=== PATIENT | female | born 1975 | race Asian ===

== ENCOUNTER → 2019-09-15 14:13 | Outpatient (BNVA) | payer BC, SELFPAY | PROVIDERS: Family Provider Obstetrics & Gynecology; PCP Obstetrics & Gynecology; Visit Provider Obstetrics & Gynecology | DX: Z01.419 Encounter for gynecological examination (general) (routine) without abnormal findings (principal); N87.1 Moderate cervical dysplasia | CPT/HCPCS: 88175 ==

== ENCOUNTER → 2019-11-01 14:00 | Outpatient (BNVA) | payer BC, SELFPAY | PROVIDERS: Family Provider Obstetrics & Gynecology; PCP Obstetrics & Gynecology; Visit Provider Obstetrics & Gynecology | DX: Z78.0 Asymptomatic menopausal state (principal); N76.2 Acute vulvitis; R87.612 Low grade squamous intraepithelial lesion on cytologic smear of cervix (LGSIL); N91.5 Oligomenorrhea, unspecified | CPT/HCPCS: 82670; 83001; 84146; 84443 ==

== ENCOUNTER → 2019-11-02 10:27 | Outpatient (BNVA) | payer BC, SELFPAY | PROVIDERS: Family Provider Obstetrics & Gynecology; PCP Obstetrics & Gynecology; Visit Provider Obstetrics & Gynecology | DX: R87.612 Low grade squamous intraepithelial lesion on cytologic smear of cervix (LGSIL) (principal) | CPT/HCPCS: 88305 ==

== ENCOUNTER → 2020-09-20 14:23 | Outpatient (BNVA) | payer BC, SELFPAY | PROVIDERS: Family Provider Obstetrics & Gynecology; PCP Obstetrics & Gynecology; Visit Provider Obstetrics & Gynecology | DX: N87.1 Moderate cervical dysplasia (principal) | CPT/HCPCS: 88175 ==

== ENCOUNTER → 2021-10-31 09:20 | Outpatient (BNVA) | payer BC, SELFPAY | PROVIDERS: Family Provider Obstetrics & Gynecology; PCP Obstetrics & Gynecology; Visit Provider Obstetrics & Gynecology | DX: R87.612 Low grade squamous intraepithelial lesion on cytologic smear of cervix (LGSIL) (principal); B97.7 Papillomavirus as the cause of diseases classified elsewhere; Z12.39 Encounter for other screening for malignant neoplasm of breast | CPT/HCPCS: 87624 ==

== ENCOUNTER 2021-12-30 08:57 | Outpatient (CLI) | payer BC, SELFPAY ==
--- NOTE | 2021-12-30 09:06 | MM_ITS ---
WS: [id number] BILATERAL SCREENING DIGITAL BREAST TOMOSYNTHESIS MAMMOGRAM WITH CAD HISTORY: Z12.39 - Encounter for other screening for malignant neoplasm. COMPARISON: None available. Bilateral CC and MLO views with tomosynthesis and synthetic mammography submitted. Computer aided det ection analyzed. Breast composition: The breasts are heterogeneously dense, which may obscure small masses. No suspici ous masses, microcalcifications or architectural distortion. MM/[id number] IMPRESSION: BI-RADS: 1-Negative FOLLOW UP: 1 Year Follow-up
== END 2021-12-30 08:58 | disposition home or self-care (01) ==
LOC: RAD 09:02
PROVIDERS: Visit Provider Obstetrics & Gynecology
DX: Z12.31 Encounter for screening mammogram for malignant neoplasm of breast (principal)
CPT/HCPCS: 77063; 77067

== ENCOUNTER → 2022-11-13 12:00 | Outpatient (BNVA) | payer BC, SELFPAY | PROVIDERS: Visit Provider Obstetrics & Gynecology | DX: Z12.4 Encounter for screening for malignant neoplasm of cervix (principal) | CPT/HCPCS: 87624 ==

== ENCOUNTER → 2024-01-14 08:46 | Outpatient (BNVA) | payer BC, SELFPAY | PROVIDERS: Visit Provider Obstetrics & Gynecology | DX: N94.10 Unspecified dyspareunia (principal) | CPT/HCPCS: 83001; 84146; 84443 ==

== ENCOUNTER → 2024-02-09 08:56 | Outpatient (BNVA) | payer BC, SELFPAY | PROVIDERS: Visit Provider Obstetrics & Gynecology | DX: N92.6 Irregular menstruation, unspecified (principal) | CPT/HCPCS: 76830 ==

== ENCOUNTER 2024-04-21 08:49 | Outpatient (CLI) | payer BC, SELFPAY ==
--- NOTE | 2024-04-21 09:00 | MM_ITS ---
WS: [id number] BILATERAL SCREENING DIGITAL TOMOSYNTHESIS MAMMOGRAM WITH CAD HISTORY: Z12.31 - Encounter for screening mammogram for malignant ... COMPARISON: 12/30/2021 Bilateral CC and MLO views with tomosynthesis and synthetic mammography submitted. Computer aided det ection analyzed. Breast composition: The breasts are heterogeneously dense, which may obscure small masses. No suspici ous masses, microcalcifications or architectural distortion. MM/[id number] IMPRESSION: BI-RADS: 1-Negative FOLLOW UP: 1 Year Follow-up
== END 2024-04-21 08:50 | disposition home or self-care (01) ==
PROVIDERS: Visit Provider Obstetrics & Gynecology
DX: Z12.31 Encounter for screening mammogram for malignant neoplasm of breast (principal); R92.333 Mammographic heterogeneous density, bilateral breasts
CPT/HCPCS: 77063; 77067

== ENCOUNTER 2024-05-04 23:00 | Emergency (ER) | payer BC, SELFPAY ==
[2024-05-04 23:11] VITALS: BP 112/83; PULSE 67; RESP 16; TEMP 36.4; O2SAT 100
[2024-05-04] MEDS: ondansetron 2 mg/ML SDV 2 mL 8 MG IVP (23:43)
[2024-05-04] MEDS: ketorolac 30 mg/mL INJ IVP (23:44)
[2024-05-04] MEDS: sodium chloride 0.9% 1,000 ML 999 ML IV (23:47)
--- NOTE | 2024-05-04 23:48 | ED_ITS ---
HPI - Abdominal Pain 2 General: Chief Complaint: Abdominal Pain Stated Complaint: N/V,lower abd pain Time Seen by Provider: 05/04/24 23:03 History of Present Illness: 49-year-old female who presents to the [facility] room with nausea vomiting and diarrhea. This started a couple hours ago. She initially had a band of pain all the way across top of her abdomen. She now has some pain in her right lateral abdomen. She has had diarrhea. Pain is minimal at this point. No pain to palpation at this point. No fevers. No chest pain. No shortness of breath. No altered mental status. Related Data Home Medications Medication Instructions Recorded Confirmed multivitamin,ae-[id number] 1 tab PO DAILY 11/01/19 02/14/24 (Complete Multivitamin tablet) cetirizine 10 mg tablet (Zyrtec) 10 mg PO DAILY PRN 09/20/20 02/14/24 Previous Rx's Medication Instructions Recorded conj estrogen-medroxyprogesterone 1 tab PO DAILY #28 tabs 02/14/24 0.3 mg-1.5 mg tablet (Prempro) estradiol 0.01% (0.1 mg/gram) 1 g vaginal DAILY #42.5 grams 02/14/24 vaginal cream cefdinir 300 mg capsule 300 mg PO BID 5 days #10 caps 05/05/24 hydrocodone 5 mg-acetaminophen 325 1 tab PO Q8H PRN pain #14 tabs 05/05/24 mg tablet ondansetron 8 mg disintegrating 8 mg PO Q6H #14 tabs 05/05/24 tablet Allergies Allergy/AdvReac Type Severity Reaction Status Date / Time astrigent Allergy swelling Uncoded 05/04/24 23:16 Review of Systems 2 Narrative: Constitutional symptoms: Negative except as documented in HPI. Skin symptoms: Negative except as documented in HPI. Eye symptoms: Negative except as documented in HPI. ENMT symptoms: Negative except as documented in HPI. Respiratory symptoms: Negative except as documented in HPI. Cardiovascular symptoms: Negative except as documented in HPI. Gastrointestinal symptoms: Negative except as documented in HPI. Genitourinary symptoms: Negative except as documented in HPI. Musculoskeletal symptoms: Negative except as documented in HPI. Neurologic symptoms: Negative except as documented in HPI. Psychiatric symptoms: Negative except as documented in HPI. Endocrine symptoms: Negative except as documented in HPI. PFSH ED 2 PFSH: Medical History Hyperlipidemia Controlled by diet Cervical intraepithelial neoplasia II Surgical History S/P LEEP (status post loop electrosurgical excision procedure) (07/05/18) Diagnosis: WILLY-2. Performed in OR due to anxiety. Performed by Dr. Connor Henry at [facility] in [place], [place]. S/P partial thyroidectomy (~1997) Family History Father Hypertension Mother Hypertension Family/Other Thyroid disease paternal aunt Denies family history of Colon cancer Ovarian cancer Prostate cancer Diabetes Heart disease Hypercholesteremia Breast cancer Uterine cancer Stroke Physical Exam 2 Narrative: EXAM NARRATIVE: General: Alert, no acute distress. Skin: Warm, dry. Head: Normocephalic, atraumatic. Neck: Supple, trachea midline. Eye: Extraocular movements are intact. Ears, nose, mouth and throat: Tacky oral mucosa Cardiovascular: Regular, Normal peripheral perfusion. Respiratory: Lungs are clear to auscultation, respirations are non-labored, breath sounds are equal, Symmetrical chest wall expansion. Gastrointestinal: Soft, Nontender, Non distended Musculoskeletal: Normal ROM, no deformity. Neurological: Alert and oriented, No focal neurological deficit observed. Psychiatric: Cooperative, appropriate mood & affect. Course 2 Vital Signs: Vital signs: Vital Signs Temperature 97.5 F L 05/04/24 23:11 Pulse Rate 99 05/05/24 01:30 Respiratory Rate 16 05/04/24 23:11 Blood Pressure 110/67 05/05/24 01:30 Pulse Oximetry 98 05/05/24 01:30 Oxygen Delivery Me thod Room Air 05/04/24 23:11 MDM - Abdominal Pain Medical Decision Making Medical decision making: Differential diagnosis for this patient with nausea and vomiting including but not limited to and based on the above HPI, review of systems and physical exam: Urinary tract infection. Appendicitis. Cholecystis. colitis. small bowel obstruction. crohn's flare. pancreatitis. gastritis. peptic ulcer. cyclic vomiting. Viral illness. Influenza. COVID. - Workup - labwork and imaging ordered to evaluate, rule in and rule out above pathologies. Lab Review: Laboratory results were reviewed and interpreted by myself the emergency room physician. Mild leukocytosis with white count of 17. Hemoglobin is 15. BUN/creatinine are 15 and 0.7. Lactic acid is not elevated at 1.5. Liver enzymes are normal. Urine shows a mild infection with 25-50 whites with leukocyte esterase but no nitrates. CT of the abdomen pelvis with contrast shows findings suspicious for diarrheal illness/enterocolitis. No other acute process. I reviewed the patient's medical record. Sepsis alert: Patient does have some leukocytosis but does not have an elevated lactate. She improved rapidly with fluids. She has a viral gastroenteritis and a mild urinary tract infection. Patient is not septic. Reexamination: Patient has improved blood pressure and pulse with fluids. No fevers. No signs of sepsis. She feels much better and is ready to go home. Assessment and plan: Viral gastroenteritis Dehydration Urinary tract infection ?IV fluids, IV Rocephin and IV Zofran in the emergency room. Also IV Toradol. - Discharged home - Discussed findings and plan with patient. Answered any questions. - All laboratory values were reviewed and interpreted personally by myself, the ER physician - All imaging was reviewed and interpreted personally by myself, the ER physician. - Evaluation and treatment of this problem were appropriate in the emergency setting Lab Data 05/04/24 23:13 05/04/24 23:13 Labs/Radiology: Radiology Impressions Abdomen/Pelvis CT 05/05/24 00:25 IMPRESSION: Findings suspicious for sequelae of diarrheal illness/enterocolitis. Laboratory Results WBC 17.64 10^3/uL (3.29-11.43) H 05/04/24 23:13 RBC 5.19 10^6/uL (3.85-5.65) 05/04/24 23:13 Hgb 15.50 g/dL (11.27-16.99) 05/04/24 23:13 Hct 45.8 % (36-47) 05/04/24 23:13 MCV 88.2 fl (85-98) 05/04/24 23:13 MCH 29.9 pg (27-33) 05/04/24 23:13 MCHC 33.8 g/dL (30-55) 05/04/24 23:13 RDW 12.0 % (12.1-15.1) L 05/04/24 23:13 Plt Count 325 10^3/cmm (157-399) 05/04/24 23:13 MPV 9.5 fL (7.4-10.4) 05/04/24 23:13 Neut % (Auto) 55.6 % 05/04/24 23:13 Lymph % (Auto) 37.0 % 05/04/24 23:13 Schleicher % (Auto) 3.3 % 05/04/24 23:13 Eos % (Auto) 3.3 % 05/04/24 23:13 Baso % (Auto) 0.3 % 05/04/24 23:13 Neut # (Auto) 9.79 10^3/uL (1.8-7.7) H 05/04/24 23:13 Lymph # (Auto) 6.5 10^3/uL (0.8-4.8) H 05/04/24 23:13 Schleicher # (Auto) 0.6 10^3/uL (0.2-0.9) 05/04/24 23:13 Eos # (Auto) 0.6 10^3/uL (0.0-0.8) 05/04/24 23:13 Baso # (Auto) 0.1 10^3/uL (0.0-0.1) 05/04/24 23:13 Nucleated RBC % (auto) 0 % 05/04/24 23:13 Nucleated RBCs # 0.0 /100WBC 05/04/24 23:13 D-Dimer Cancelled 05/04/24 23:16 Sodium 137 mmol/L (136-145) 05/04/24 23:13 Potassium 3.5 mmol/L (3.5-5.1) 05/04/24 23:13 Chloride 99 mmol/L (98-107) 05/04/24 23:13 Carbon Dioxide 24 mmol/L (22-29) 05/04/24 23:13 Anion Gap 17.5 (5-19) 05/04/24 23:13 BUN 15 mg/dL (6-20) 05/04/24 23:13 Creatinine 0.7 mg/dL (0.5-0.9) 05/04/24 23:13 GFR Calculation 88.6 mL/min (90-130) L 05/04/24 23:13 Glucose 119 mg/dL (65-115) H 05/04/24 23:13 Calculated Osmolality 286 mOsm/kg (285-295) 05/04/24 23:13 Lactic Acid 2.5 mmol/L (0.5-2.2) H 05/04/24 23:13 Lactic Acid (Sepsis) 1.5 mmol/L (0.5-2.2) 05/05/24 01:24 Calcium 9.5 mg/dL (8.5-10.5) 05/04/24 23:13 Total Bilirubin 0.2 mg/dL (0.15-1.2) 05/04/24 23:13 AST 19 U/L (0-32) 05/04/24 23:13 ALT 16 U/L (0-33) 05/04/24 23:13 Alkaline Phosphatase 139 U/L (35-105) H 05/04/24 23:13 C-Reactive Protein 3.0 mg/L (0.0-4.9) 05/04/24 23:13 Total Protein 8.2 g/dL (6.6-8.7) 05/04/24 23:13 Albumin 4.7 g/dL (3.5-5.2) 05/04/24 23:13 Globulin 3.5 g/dL (1.3-4.6) 05/04/24 23:13 Lipase 42 U/L (13-60) 05/04/24 23:13 Urine Color Dark yellow (Yellow) A 05/05/24 00:02 Urine Appearance Cloudy (CLEAR) A 05/05/24 00:02 Urine pH 6.0 (5-7) 05/05/24 00:02 Ur Specific [place] 1.030 (1.005-1.030) 05/05/24 00:02 Urine Protein Trace (Negative) A 05/05/24 00:02 Urine Glucose (UA) Negative (Normal) 05/05/24 00:02 Urine Ketones Trace (Negative) 05/05/24 00:02 Urine Blood Negative (Negative) 05/05/24 00:02 Urine Nitrate Negative (Negative) 05/05/24 00:02 Urine Bilirubin Negative (Negative) 05/05/24 00:02 Urine Urobilinogen 1.0 mg/dL (Negative) 05/05/24 00:02 Ur Leukocyte Esterase 1+ (Negative) A 05/05/24 00:02 Urine RBC 0-2 /hpf (0-2) 05/05/24 00:02 Urine WBC 21-50 /hpf (0-5) H 05/05/24 00:02 Ur Squamous Epith Cells 6-10 /hpf (0-5) 05/05/24 00:02 Amorphous Sediment Not Reportable 05/05/24 00:02 Urine Bacteria 1+ /hpf (NONE) H 05/05/24 00:02 Hyaline Casts 6.61 /lpf 05/05/24 00:02 All radiology interpretation(s) finalized by discharge Discharge Plan Discharge Patient Disposition: Home Clinical Impression: Gastroenteritis, Urinary tract infection, Dehydration Condition: Stable Prescriptions: New hydrocodone-acetaminophen 5-325 mg tablet 1 tab PO Q8H PRN (Reason: pain) Qty: 14 0RF Rx Instructions: Take 1/2 to 1 tab every 8 hours as needed for pain ondansetron 8 mg tablet,disintegrating 8 mg PO Q6H Qty: 14 0RF Rx Instructions: Take 1/2-1 tab every 6 hours as needed for nausea and vomiting cefdinir 300 mg capsule 300 mg PO BID 5 Days Qty: 10 0RF No Action cetirizine [Zyrtec] 10 mg tablet 10 mg PO DAILY PRN Complete Multivitamin Tablet 1 tab PO DAILY estradiol 0.01 % (0.1 mg/gram) cream 1 g vaginal DAILY Qty: 42.5 0RF Rx Instructions: for 14 days Prempro 0.3-1.5 mg tablet 1 tab PO DAILY Qty: 28 0RF Discharge Orders: Discharge ED (Routine); Ordered 05/05/24 Ordered By: Nellie Campoverde Discharge Diet: Usual diet Discharge Activity: Increase activity as tolerated Patient Instructions: Urinary Tract Infection in Women (ED), Gastroenteritis (ED) Activity Restrictions/Additional Instructions: Thank you for choosing [facility] for your healthcare needs today. Please realize this is an emergency room and that we are providing you with a medical screening exam and this may not be complete and all inclusive of all the testing and or work up that you may need to determine your ailment or severity of your illness. You have been screened and evaluated and felt safe for discharge. Health conditions do change or evolve sometimes and as such it is important that you follow up with your Primary Doctor to be re checked, 3-5 days is a general good time frame for follow up. You are always welcome to return to the ED for re assessment if your symptoms are worsening or you have new concerns Coding Level of Care Code ED [employer] Supervisor for Jacques Miranda
[2024-05-04 23:51] LABS: Alanine Aminotransferase 16 U/L (0-33); Albumin Level 4.7 g/dL (3.5-5.2); Alkaline Phosphatase 139 U/L (35-105); Anion Gap 17.5 (5-19); Aspartate Amino Transferase 19 U/L (0-32); Blood Urea Nitrogen 15 mg/dL (6-20); Calcium 9.5 mg/dL (8.5-10.5); Carbon Dioxide 24 mmol/L (22-29); Chloride 99 mmol/L (98-107); Creatinine Clr Calc Pharmacy 85.3719; Globulin 3.5 g/dL (1.3-4.6); Glomerular Filtration Rate 88.6 mL/min (90-130); Glucose 119 mg/dL (65-115); Lipase 42 U/L (13-60); Osmolality Calculated 286 mOsm/kg (285-295); Potassium 3.5 mmol/L (3.5-5.1); Sodium 137 mmol/L (136-145); Total Bilirubin 0.2 mg/dL (0.15-1.2); Total Protein 8.2 g/dL (6.6-8.7)
[2024-05-04 23:52] LABS: Lactic Sepsis W/Reflex 2.5 mmol/L (0.5-2.2)
[2024-05-05 00:01] VITALS: BP 123/90; PULSE 90; O2SAT 100
[2024-05-05 00:14] LABS: Basophils # 0.1 10^3/uL (0.0-0.1); Basophils % 0.3 %; Eosinophils # 0.6 10^3/uL (0.0-0.8); Eosinophils % 3.3 %; Hematocrit 45.8 % (36-47); Lymphocytes # 6.5 10^3/uL (0.8-4.8); Mean Corpuscular HGB Conc 33.8 g/dL (30-55); Mean Corpuscular Hemoglobin 29.9 pg (27-33); Mean Corpuscular Volume 88.2 fl (85-98); Mean Platelet Volume 9.5 fL (7.4-10.4); Monocytes # 0.6 10^3/uL (0.2-0.9); Monocytes % 3.3 %; Neutrophils # 9.79 10^3/uL (1.8-7.7); Neutrophils % 55.6 %; Nucleated Red Blood Cells % 0 %; Platelet Count 325 10^3/cmm (157-399); Red Blood Count 5.19 10^6/uL (3.85-5.65); Slide Review Slide Review Perform; White Blood Count 17.64 10^3/uL (3.29-11.43)
[2024-05-05 00:20] LABS: Bilirubin Urine Negative (Negative); Blood Urine Negative (Negative); Glucose Urine UA Negative (Normal); Ketones Urine Trace (Negative); Leukocyte Esterase Urine 1+ (Negative); Nitrate Urine Negative (Negative); Protein Urine Trace (Negative); Urine Appearance Cloudy (CLEAR); Urine Color Dark Yellow (Yellow)
[2024-05-05 00:25] LABS: Bacteria Urine 1+ /hpf; Hyaline Casts Urine 6.61 /lpf; RBC Urine 0-2 /hpf (0-2); WBC Urine 21-50 /hpf (0-5)
--- NOTE | 2024-05-05 00:25 | CTR_ITS ---
PROCEDURE INFORMATION: Exam: CT Abdomen And Pelvis With Contrast Exam date and time: 05/05/2024 12:48 AM Age: 49 years old Clinical indication: Abdominal pain; Generalized TECHNIQUE: Imaging protocol: Computed tomography of the abdomen and pelvis with contrast. Radiation optimization: All CT scans at this facility use at least one of these dose optimization techniques: automated exposure control; mA and/or kV adjustment per patient size (includes targeted exams where dose is matched to clinical indication); or iterative reconstruction. Contrast material: OMNI 350; Contrast volume: 100 ml; Contrast route: INTRAVENOUS (IV); COMPARISON: US transvaginal [id number] 02/09/2024 9:03 AM RADIATION DOSE METRICS: Total DLP (mGy-cm): 404.22 FINDINGS: Liver: Unremarkable. No mass. Gallbladder and biliary ducts: Unremarkable. No calcified stones. No ductal dilation. Pancreas: Unremarkable. No ductal dilation. Spleen: Unremarkable. No mass. Adrenal glands: Unremarkable. No mass. Kidneys and ureters: Unremarkable. No stone or hydronephrosis. Stomach and bowel: Fluid within the small bowel and colon with scattered bowel wall thickening. Colonic diverticulosis. No bowel obstruction. Appendix: No evidence of appendicitis. Intraperitoneal space: No free air. No significant fluid collection. Vasculature: No abdominal aortic aneurysm. Lymph nodes: No enlarged lymph nodes. Urinary bladder: Unremarkable as visualized. Reproductive: Unremarkable as visualized. Bones/joints: No acute fracture. No suspicious lesion. Soft tissues: No bowel containing hernia. CT/CT abdomen pelvis w con* [id number] IMPRESSION: Findings suspicious for sequelae of diarrheal illness/enterocolitis.
[2024-05-05 00:27] LABS: Add Urine Culture? Yes
[2024-05-05] MEDS: cefTRIAXone 1,000 mg SDV 1000 MG IVP (00:40)
[2024-05-05 00:43] VITALS: BP 116/59; PULSE 103; O2SAT 100
[2024-05-05] MEDS: iohexol 350 mg/mL 500 mL Btl (per mL) IV (00:53)
[2024-05-05 01:00] VITALS: BP 110/66; PULSE 104; O2SAT 98
[2024-05-05 01:15] LABS: Reflex Lactate Order REFLEX LACTIC ORDERD
[2024-05-05 01:30] VITALS: BP 110/67; PULSE 99; O2SAT 98
[2024-05-05 01:43] LABS: Lactic Acid level (Lactate) 1.5 mmol/L (0.5-2.2)
[2024-05-05 02:33] VITALS: BP 115/74; PULSE 103; O2SAT 98
== END 2024-05-05 02:35 | disposition home or self-care (01) ==
PROVIDERS: Emergency Provider Emergency Medicine
DX: K52.9 Noninfective gastroenteritis and colitis, unspecified (principal); N39.0 Urinary tract infection, site not specified; E86.0 Dehydration; E78.5 Hyperlipidemia, unspecified
CPT/HCPCS: 36415; 74177; 80053; 81001; 83605; 83690; 85025; 86140; 87086; 96361; 96374; 96375; 99285; J0696; J1885; J2405; J7030

== ENCOUNTER → 2025-02-05 10:04 | Outpatient (BNVA) | payer BC, SELFPAY | PROVIDERS: Visit Provider Obstetrics & Gynecology | DX: Z01.419 Encounter for gynecological examination (general) (routine) without abnormal findings (principal) | CPT/HCPCS: 87624 ==